=== PATIENT | male | born 1990 | race Caucasian/White ===

== ENCOUNTER 2022-07-30 12:47 | Emergency (ER) | payer MEDICAID ==
[~2022-07-30] VITALS: Ht 180.3 cm; Wt 136.4 kg
[2022-07-30 13:09] VITALS: BP 173/111
[2022-07-30] MEDS ORDERED: LIDOcaine Viscous 15ml cup TP ONE (15:40)
[2022-07-30] MEDS ORDERED: HYDR-3972 PO (15:58)
[2022-07-30] MEDS ORDERED: AMOX-580 PO (15:58)
== END 2022-07-30 16:46 | disposition home or self-care (01) ==
LOC: ER 12:48
DX: K04.7 Periapical abscess without sinus (principal); F17.200 Nicotine dependence, unspecified, uncomplicated; Z79.899 Other long term (current) drug therapy
CPT/HCPCS: 41800; 99284